=== PATIENT | female | born 1975 | race Caucasian/White ===

== ENCOUNTER 2019-02-25 09:26 | Outpatient (CLI) | payer OTHER ==
--- NOTE | 2019-02-25 09:58 | ULT ---
TRANSABDOMINAL TRANSVAGINAL PELVIC ULTRASOUND DATE:: 02/25/2019 12:00 AM CLINICAL HISTORY: Abnormal uterine bleeding. COMPARISON: None. TECHNIQUE: Grayscale, color Doppler and spectral Doppler images were obtained of the pelvis see a tra nsabdominal transvaginal approach Uterus: Size: The uterus is enlarged and heterogeneous with multiple uterine masses. The uterus measures 14.0 x 12.3 x 10.7 cm. Mass: 2 of the more prominent uterine mass is are seen within the right aspect of the uterine body me asuring 5.7 x 5.2 x 4.8 cm. An additional mass is seen within the left aspect of the uterine body measuring 4.8 x 5.2 x 4.3 cm. The masses distort visualization of the endometrial canal. Cervix: Not well seen Endometrium: Not well seen as above Endometrial Thickness: Not visualized Ovaries: Size: right measures 5.8 x 3.7 x 2.2 cm. cm; left ovary not visualized Mass: Right ovarian cyst measuring 3.3 cm. Flow: Normal to the right ovary Cul-de-sac: No free fluid IMPRESSION: Enlarged heterogeneous uterus with multiple uterine wall masses consistent with a fibroid uterus. The prominent masses limits visualization of the endometrial canal. Right ovarian cyst measuring 3.3 cm. Nonvisualization of the left ovary
== END 2019-02-25 09:27 | disposition home or self-care (01) ==
LOC: BICULT 09:26
PROVIDERS: ATTEND Family Medicine
DX: N93.9 Abnormal uterine and vaginal bleeding, unspecified (principal); D64.9 Anemia, unspecified; N83.201 Unspecified ovarian cyst, right side; N85.2 Hypertrophy of uterus
CPT/HCPCS: 76856; 93976